=== PATIENT | female | born 1970 | race Caucasian/White ===

== ENCOUNTER 2023-03-07 12:10 | Outpatient (RCR) | payer BC, SELFPAY | END 2023-03-07 23:59 | disposition home or self-care (01) | LOC: RPT 12:10 | PROVIDERS: ATTENDING PHYSICIAN Family Medicine | DX: M25.511 Pain in right shoulder (principal); M25.512 Pain in left shoulder; Z73.6 Limitation of activities due to disability | CPT/HCPCS: 97110; 97112; 97140; 97161 ==

== ENCOUNTER 2023-03-15 16:02 | Outpatient (RCR) | payer BC, SELFPAY | END 2023-03-28 09:29 | disposition home or self-care (01) | LOC: RPT 16:02 | PROVIDERS: ATTENDING PHYSICIAN Family Medicine | DX: M25.511 Pain in right shoulder (principal); M25.512 Pain in left shoulder; Z73.6 Limitation of activities due to disability | CPT/HCPCS: 97110; 97112; 97140 ==

== ENCOUNTER → 2023-04-13 07:14 | Outpatient (REF) | payer BC, SELFPAY ==
[2023-04-13 08:07] LABS: % Basophils 0.5 % (0-2); % Eosinophils 1.7 % (0-6); % Immature Granulocytes 0.3 % (0-0.5); % Lymphocytes 26.2 % (20.5-51.1); % Monocytes 8.7 % (1.7-9.3); % Neutrophils 62.6 % (42.2-75.2); Absolute Eosinophils 0.1 10^3/uL (0-0.7); Absolute Lymphocytes 1.7 10^3/uL (1.2-3.4); Absolute Monocytes 0.6 10^3/uL (0.1-0.6); Absolute Neutrophils 4.2 10^3/uL (1.4-6.5); Hematocrit 37.5 % (37.0-47.0); Hemoglobin 13.1 g/dL (12.0-16.0); Mean Corp Hgb Conc. 34.9 g/dL (33.0-37.0); Mean Corpuscular Hgb 31.9 pg (27.0-31.0); Mean Corpuscular Volume 91.2 fL (81.0-99.0); Mean Platelet Volume 10.9 fL (7.4-10.4); Nucleated Red Blood Cells % 0 %; Platelet Count 284 10^3/uL (130-400); Red Blood Cell Count 4.11 10^6/uL (4.20-5.40); Red Cell Dist. Width 12.1 % (11.5-14.5); White Blood Cell Count 6.6 10^3/uL (4.8-10.8)
[2023-04-13 08:23] LABS: Vitamin D, 25-OH*** 66.3 ng/mL (30-80)
[2023-04-13 08:28] LABS: ALT (SGPT) 15 U/L (0-35); AST (SGOT) 25 U/L (14-36); Albumin 4.5 g/dl (3.5-5.0); Alkaline Phosphatase 55 U/L (38-126); Blood Urea Nitrogen 17 mg/dl (7-17); Calcium 9.4 mg/dl (8.4-10.2); Carbon Dioxide 24 mmol/L (22-30); Chloride 106 mmol/L (98-107); Glucose 88 mg/dl (70-99); HDL Cholesterol 57 mg/dl; LDL Cholesterol, Calculated 44 mg/dl; Potassium 4.5 mmol/L (3.5-5.1); Sodium 136 mmol/L (135-145); Total Bilirubin 0.7 mg/dl (0.2-1.3); Total Cholesterol 112 mg/dl (50-199); Total Protein 7.5 g/dl (6.3-8.2); Triglyceride 55 mg/dl (10-149); Very Low Density Lipoprotein 11 mg/dl (0-30); eGFR > 60.00
[2023-04-13 08:37] LABS: TSH Reflex To Free T4 3.65 uIU/ml (0.47-4.68)
[2023-04-13 08:54] LABS: Glycohemoglobin (HgbA1c) 5.4 % (4.0-5.6)
== END ==
LOC: REG 07:14
PROVIDERS: ATTENDING PHYSICIAN Family Medicine
DX: Z00.00 Encounter for general adult medical examination without abnormal findings (principal)
CPT/HCPCS: 36415; 80053; 80061; 82306; 83036; 84443; 85025

== ENCOUNTER → 2023-06-01 11:37 | Outpatient (REF) | payer BC, SELFPAY ==
[2023-06-01 16:56] LABS: IgA 254 mg/dl (70-400)
[2023-06-03 18:54] LABS: Endomysial IgA Antibody Titer <1:10 (<1:10)
[2023-06-04 08:20] LABS: Alternaria tenuis 0.23 kU/L (<=0.34); Aspergillus fumigatus 0.24 kU/L (<=0.34); Dermatophagoides farinae 2.06 kU/L (<=0.34); Dermatophagoides pteronyssinus 1.53 kU/L (<=0.34); Dog Dander 0.75 kU/L (<=0.34); Hormodendrum 0.19 kU/L (<=0.34); IgE 426 kU/L (<=214); Mouse Epithelium 0.32 kU/L (<=0.34); Mucor racemosus 0.52 kU/L (<=0.34); Penicillium notatum 0.12 kU/L (<=0.34); White Mulberry Tree 9.34 kU/L (<=0.34)
[2023-06-07 14:27] LABS: tTG IgA Antibody 48.3 EU/ml (0-19); tTG IgG Antibody 10.4 EU/ml (0-19)
== END ==
LOC: REG 11:37
PROVIDERS: ATTENDING PHYSICIAN Physician Assistant Medical; FAMILY PHYSICIAN Family Medicine
DX: J30.9 Allergic rhinitis, unspecified (principal); R19.7 Diarrhea, unspecified; R10.9 Unspecified abdominal pain
CPT/HCPCS: 36415; 82784; 82785; 83516; 86003; 86231

== ENCOUNTER → 2023-06-20 06:37 | Day surgery (SDC) | payer BC, SELFPAY | LOC: GI 06:37 | PROVIDERS: ATTENDING PHYSICIAN Internal Medicine Gastroenterology | DX: R76.8 Other specified abnormal immunological findings in serum (principal); K44.9 Diaphragmatic hernia without obstruction or gangrene; K29.50 Unspecified chronic gastritis without bleeding | CPT/HCPCS: 43239; 88305; 88342 ==

== ENCOUNTER → 2023-08-24 13:43 | Outpatient (REF) | payer BC, SELFPAY ==
[2023-08-24 15:38] LABS: IgA 244 mg/dl (70-400)
[2023-08-24 15:46] LABS: FSH 58.9 mIU/ml
[2023-08-24 16:01] LABS: Estradiol 72.5 pg/ml
== END ==
LOC: REG 13:43
PROVIDERS: ATTENDING PHYSICIAN Internal Medicine Gastroenterology; FAMILY PHYSICIAN Nurse Practitioner Adult Health
DX: R89.4 Abnormal immunological findings in specimens from other organs, systems and tissues (principal); N95.1 Menopausal and female climacteric states
CPT/HCPCS: 36415; 82670; 82784; 83001; 83002; 83516; 86231

== ENCOUNTER → 2023-09-14 08:31 | Outpatient (REF) | payer BC, SELFPAY | LOC: CPAP 08:31 | PROVIDERS: ATTENDING PHYSICIAN Nurse Practitioner Adult Health | DX: Z01.419 Encounter for gynecological examination (general) (routine) without abnormal findings (principal) | CPT/HCPCS: 87624 ==

== ENCOUNTER → 2023-09-26 13:42 | Outpatient (REF) | payer BC, SELFPAY | LOC: WDC 13:42 | PROVIDERS: ATTENDING PHYSICIAN Nurse Practitioner Adult Health; FAMILY PHYSICIAN Family Medicine | DX: Z12.31 Encounter for screening mammogram for malignant neoplasm of breast (principal) | CPT/HCPCS: 77063; 77067 ==

== ENCOUNTER → 2023-12-01 16:31 | Outpatient (REF) | payer BC, SELFPAY ==
[2023-12-01 17:25] LABS: Hemoglobin 13.8 g/dL (12.0-16.0); Mean Corp Hgb Conc. 34.5 g/dL (33.0-37.0); Mean Corpuscular Volume 92.8 fL (81.0-99.0); Mean Platelet Volume 10.2 fL (7.4-10.4); Platelet Count 297 10^3/uL (130-400); Red Blood Cell Count 4.31 10^6/uL (4.20-5.40); Red Cell Dist. Width 11.7 % (11.5-14.5); White Blood Cell Count 9.3 10^3/uL (4.8-10.8)
[2023-12-01 17:41] LABS: Iron 90 ug/dl (37-170)
[2023-12-01 17:51] LABS: Percent Saturation 33 % (20-50); Total Iron Binding Capacity 269 ug/dl (265-497)
[2023-12-01 18:06] LABS: Vitamin D, 25-OH*** 48.5 ng/mL (30-80)
[2023-12-01 18:56] LABS: Folate 10.4 ng/ml (2.76-20); Vitamin B12 514 pg/ml (239-931)
[2023-12-03 23:49] LABS: IgA 252 mg/dl (70-400)
[2023-12-04 07:27] LABS: Copper, Serum 114.8 ug/dL (80.0-155.0)
== END ==
LOC: REG 16:31
PROVIDERS: ATTENDING PHYSICIAN Internal Medicine Gastroenterology; FAMILY PHYSICIAN Family Medicine
DX: K90.0 Celiac disease (principal)
CPT/HCPCS: 36415; 82306; 82380; 82525; 82607; 82728; 82746; 82784; 83516; 83540; 83550; 84446; 84590; 84630; 85027; 86231

== ENCOUNTER → 2024-01-24 15:03 | Outpatient (REF) | payer BC, SELFPAY | LOC: WDC 15:03 | PROVIDERS: ATTENDING PHYSICIAN Nurse Practitioner Adult Health; FAMILY PHYSICIAN Family Medicine | DX: R92.2 Inconclusive mammogram (principal) | CPT/HCPCS: 76641 ==

== ENCOUNTER → 2024-04-20 08:03 | Outpatient (REF) | payer BC, SELFPAY ==
[2024-04-20 09:07] LABS: % Basophils 0.8 % (0-2); % Immature Granulocytes 0.2 % (0-0.5); % Lymphocytes 29.6 % (20.5-51.1); % Monocytes 7.3 % (1.7-9.3); % Neutrophils 60.1 % (42.2-75.2); Absolute Basophils 0.1 10^3/uL (0-0.2); Absolute Eosinophils 0.1 10^3/uL (0-0.7); Absolute Monocytes 0.5 10^3/uL (0.1-0.6); Hematocrit 40.8 % (37.0-47.0); Hemoglobin 13.8 g/dL (12.0-16.0); Mean Corp Hgb Conc. 33.8 g/dL (33.0-37.0); Mean Corpuscular Hgb 31.5 pg (27.0-31.0); Mean Corpuscular Volume 93.2 fL (81.0-99.0); Mean Platelet Volume 10.3 fL (7.4-10.4); Nucleated Red Blood Cells % 0 %; Platelet Count 320 10^3/uL (130-400); Red Blood Cell Count 4.38 10^6/uL (4.20-5.40); Red Cell Dist. Width 11.9 % (11.5-14.5); White Blood Cell Count 6.6 10^3/uL (4.8-10.8)
[2024-04-20 09:26] LABS: Glycohemoglobin (HgbA1c) 5.1 % (4.0-5.6)
[2024-04-20 09:31] LABS: ALT (SGPT) 17 U/L (0-35); AST (SGOT) 24 U/L (14-36); Albumin 4.8 g/dl (3.5-5.0); Alkaline Phosphatase 72 U/L (38-126); Blood Urea Nitrogen 21 mg/dl (7-17); Calcium 9.8 mg/dl (8.4-10.2); Carbon Dioxide 25 mmol/L (22-30); Chloride 102 mmol/L (98-107); Glucose 90 mg/dl (70-99); HDL Cholesterol 66 mg/dl; LDL Cholesterol, Calculated 50 mg/dl; Potassium 4.8 mmol/L (3.5-5.1); Sodium 137 mmol/L (135-145); Total Bilirubin 0.8 mg/dl (0.2-1.3); Total Cholesterol 130 mg/dl (50-199); Total Protein 7.7 g/dl (6.3-8.2); Triglyceride 70 mg/dl (10-149); Very Low Density Lipoprotein 14 mg/dl (0-30); eGFR > 60.00
[2024-04-20 10:05] LABS: TSH Reflex To Free T4 5.61 uIU/ml (0.47-4.68)
[2024-04-20 10:35] LABS: Free T4 0.92 ng/dl (0.78-2.19)
== END ==
LOC: REG 08:03
PROVIDERS: ATTENDING PHYSICIAN Family Medicine
DX: Z00.00 Encounter for general adult medical examination without abnormal findings (principal); E66.3 Overweight
CPT/HCPCS: 36415; 80053; 80061; 83036; 84439; 84443; 85025

== ENCOUNTER → 2024-04-23 16:55 | Outpatient (REF) | payer BC, SELFPAY ==
[2024-04-25 16:16] LABS: HPV, High Risk Not Detected; HPV, High Risk Source Anal
== END ==
LOC: CLAB 16:55
PROVIDERS: ATTENDING PHYSICIAN Physician Assistant
DX: Z86.19 Personal history of other infectious and parasitic diseases (principal)
CPT/HCPCS: 87624; 88112

== ENCOUNTER 2024-07-04 18:56 | Outpatient (RCR) | payer BC, SELFPAY | END 2024-07-04 23:59 | disposition home or self-care (01) | LOC: RPT 18:56 | PROVIDERS: ATTENDING PHYSICIAN Family Medicine | DX: M25.511 Pain in right shoulder (principal); Z73.6 Limitation of activities due to disability; M62.81 Muscle weakness (generalized) | CPT/HCPCS: 97110; 97112; 97140; 97161 ==

== ENCOUNTER 2024-07-10 14:02 | Outpatient (RCR) | payer BC, SELFPAY | END 2024-07-10 23:59 | disposition home or self-care (01) | LOC: RPT 14:02 | PROVIDERS: ATTENDING PHYSICIAN Family Medicine | DX: M25.511 Pain in right shoulder (principal); Z73.6 Limitation of activities due to disability; M62.81 Muscle weakness (generalized) | CPT/HCPCS: 97110; 97112; 97140 ==

== ENCOUNTER → 2024-09-13 08:04 | Outpatient (REF) | payer BC, SELFPAY ==
[2024-09-13 14:35] LABS: TSH 1.63 uIU/ml (0.47-4.68)
== END ==
LOC: REG 08:04
PROVIDERS: ATTENDING PHYSICIAN Family Medicine
DX: E03.9 Hypothyroidism, unspecified (principal)
CPT/HCPCS: 36415; 84439; 84443

== ENCOUNTER → 2024-09-18 08:13 | Outpatient (REF) | payer BC, SELFPAY | LOC: CPAP 08:13 | PROVIDERS: ATTENDING PHYSICIAN Nurse Practitioner Adult Health | DX: Z01.419 Encounter for gynecological examination (general) (routine) without abnormal findings (principal) | CPT/HCPCS: 87624 ==

== ENCOUNTER → 2024-09-26 15:49 | Outpatient (REF) | payer BC, SELFPAY | LOC: WDC 15:49 | PROVIDERS: ATTENDING PHYSICIAN Nurse Practitioner Adult Health | DX: Z12.31 Encounter for screening mammogram for malignant neoplasm of breast (principal) | CPT/HCPCS: 77063; 77067 ==

== ENCOUNTER → 2024-10-31 15:24 | Outpatient (REF) | payer BC, SELFPAY | LOC: RAD 15:24 | PROVIDERS: ATTENDING PHYSICIAN Nurse Practitioner Adult Health; FAMILY PHYSICIAN Family Medicine; REFERRING PHYSICIAN Nurse Practitioner | DX: R59.0 Localized enlarged lymph nodes (principal); K90.0 Celiac disease | CPT/HCPCS: 36415; 76536; 82784; 83516; 86231 ==